=== PATIENT | male | born 1965 | race Caucasian/White ===

== ENCOUNTER 2024-08-13 06:16 | Inpatient (IN) | payer BC ==
[2024-08-13] MEDS ORDERED: ONDANSETRON 4 MG/2 ML VIAL ONE ×2 (06:38→09:44)
[2024-08-13] MEDS ORDERED: KETOROLAC 30 MG/ML INJ ONE ×2 (06:39→09:44)
[2024-08-13] MEDS ORDERED: NA CHLORIDE 0.9% 1,000 ML ONE ×2 (06:39→07:26)
[2024-08-13] MEDS ORDERED: MORPHINE 4 MG/ML SYR ONE (06:39)
[2024-08-13] MEDS ORDERED: METRONIDAZOLE 500mg IVPB 500 MG/100 ML BAG IV ONE (06:40)
[2024-08-13 06:49] LABS: Absolute Basophils 0.1 K/uL (0-0.5); Absolute Lymphocytes (CBC) 1.3 K/uL (0.7-4.9); Absolute Neutrophil 11.4 K/uL (1.8-8.0); Basophils % 0.5 % (0-1.3); Eosinophils % 0.2 % (0-4.4); Hemoglobin 15.9 g/dL (13.6-17.9); Lymphocytes % 9.3 % (15.3-44.8); MCHC 34.7 g/dL (32.0-36.0); MCV 89.4 fL (80-100); MPV 8.8 fL (7.6-11.3); Monocytes % 7.4 % (3.3-12.3); Neutrophils % 82.6 % (41.7-73.7); Nucleated Red Blood Cells % 0.1 % (0-0); Platelets 225 thou/uL (152-406); RBC Red Blood Cell Count 5.14 M/uL (4.33-5.43); Red Cell Distribution Width 13.1 % (12.1-15.2)
[2024-08-13 07:05] LABS: PT Prothrombin Time 12.5 SECONDS (9.4-12.5); PTT, Activated Partial Thromb 31.6 SECONDS (24.3-36.9); Protime INR 1.19
[2024-08-13 07:07] LABS: ALT/SGPT 69 U/L (16-61); AST/SGOT 21 U/L (15-37); Albumin 3.7 g/dL (3.4-5.0); Albumin/Globulin Ratio 0.9 (1.1-1.8); Alkaline Phosphatase 70 U/L (45-117); Anion Gap 8.8 mEq/L (5.0-15.0); BUN Blood Urea Nitrogen 8 mg/dL (7-18); Bicarbonate 25 mEq/L (21-32); Bilirubin Total 1.4 mg/dL (0.2-1.0); Globulin 4.2 g/dL (2.3-3.5); Glomerular Filtration Rate 83 ml/min (=/>90); Glucose Level 159 mg/dL (74-106); Lipase 17 U/L (13-75); Potassium 3.8 mEq/L (3.5-5.1); Protein, Total 7.9 g/dL (6.4-8.2); Sodium Level 135 mEq/L (136-145)
[2024-08-13 07:10] LABS: Troponin High Sensitivity < 3.0 pg/mL (<58.9)
[2024-08-13] MEDS ORDERED: CEFEPIME 2 GM VIAL ONE (07:25)
--- NOTE | 2024-08-13 08:19 | RAD REPORT ---
EXAM: CT CHEST, ABDOMEN AND PELVIS WITH CONTRAST CLINICAL INDICATION: Male, 58 years old. ABDOMINAL DISTENTION TECHNIQUE: CT chest, abdomen, and pelvis was performed, following the administration of contrast, as per department protocol. Axial, sagittal and coronal reconstructions were obtained. One or more of the following dose reduction techniques were used: Automated exposure control, adjustment of the mA a nd/or kV according to patient size, and/or iterative reconstruction. Unless otherwise specified, incidental findings do not require dedicated imaging follow-up. COMPARISON: No prior exam. FINDINGS: LUNGS AND AIRWAYS: No evidence of airspace or interstitial process. Solid 1.4 cm posterior right uppe r lobe lobulated nodule with linear atelectatic extension to the pleura. Subsegmental atelectatic changes in the right lower lobe dependent aspects and upper segment, and anterior aspects of the left lower lobe. PLEURA: No pleural effusion. No pneumothorax. MEDIASTINUM AND LYMPH NODES: No mediastinal mass or fluid collection. Normal size mediastinal, hilar, and axillary lymph nodes. THORACIC AORTA: Normal caliber and configuration. PULMONARY ARTERIES: Normal caliber. OSSEOUS STRUCTURES AND CHEST WALL: Intact. LIVER: The liver demonstrates mild fatty infiltration. 1.2 cm near fluid density hypoattenuating lesi on in the right lobe, indeterminate but may suggest a small simple cyst. No suspicious focal lesion or biliary dilitation is seen. BILIARY SYSTEM: Large cholesterol containing gallstones. No evidence of intrahepatic or extrahepatic biliary duct dilation PANCREAS: No mass, ductal dilation, or harshil-pancreatic fluid. SPLEEN: Normal size. No focal lesion. ADRENALS: Normal; no mass. KIDNEYS AND URETERS: Normal size and contour. No hydronephrosis. URINARY BLADDER: Normal contour. GASTROINTESTINAL TRACT: Inflammatory changes with ligament prominence and adjacent fat stranding at t he base to mid aspect of the appendix. 1.5 cm appendicolith near the base. No periappendiceal collections are extraluminal gas. No bowel obstruction, free air, significant free fluid or abscess. APPENDIX: No inflammatory changes in region of appendix. LYMPH NODES: No lymphadenopathy. ABDOMINAL AORTA AND OTHER VESSELS: Normal caliber aorta and IVC. MUSCULOSKELETAL: No acute or suspicious osseous abnormality. IMPRESSION: Findings of acute uncomplicated appendicitis, with inflammation more pronounced at the base. 1.5 cm a ppendicolith near the base. No evidence of complications. Large cholesterol containing gallstones and other incidental findings as above. Right upper lobe 1.4 cm nodule. 2017 Fleischner Society Recommendations for Lung Nodule(s): Follow-Up based on size (average of long- and short-axis diameters). Use most suspicious nodule for followup. Single solid lung nodule 9+ mm: Consider non-contrast chest CT at 3 months, PET/CT, or tissue samplin g. If this nodule was detected on an incomplete chest CT, first recommend a prompt, non-contrast chest CT. These guidelines do not apply to patients younger than 35 years, immunocompromised patients, and emerita ents with cancer. F/u in patients with significant comorbidities as clinically warranted. For lung cancer screening, adhere to Lung-RADS guidelines. Reference: Radiology. 2017 Hai; 284(1):228-243 THIS REPORT CONTAINS FINDINGS THAT MAY BE CRITICAL TO PATIENT CARE. The findings were verbally commun icated via telephone to Kyle Denis MD on 08/13/2024 8:13 AM.
--- NOTE | 2024-08-13 08:52 | ER ---
Nurse's Notes [facility] [place] Name: Jonatan Berg Age: 58 yrs Sex: Male : 1965 Arrival Date: 08/13/2024 Time: 06:16 Bed 8 Private MD: Diagnosis: Unspecified acute appendicitis Presentation: 08/13 06:28 Chief complaint: Patient states: right upper quadrant pain since 1 pm yesterday kl positive nausea chills fever. Coronavirus screen: Vaccine status: Patient reports receiving the 2nd dose of the covid vaccine. Ebola Screen: Patient negative for fever greater than or equal to 101.5 degrees Fahrenheit, and additional compatible Ebola Virus Disease symptoms. Initial Sepsis Screen: Does the patient meet any 2 criteria? Temp <36.0*C (96.8*F)) or > 38.3*C (100.9*F). HR > 90 bpm. Does the patient have a suspected source of infection? No. Patient's initial sepsis screen is negative. Risk Assessment: Do you want to hurt yourself or someone else? Patient reports no desire to harm self or others. Onset of symptoms was August 12, 2024 at 13:00. 06:28 Method Of Arrival: Wheelchair kl 06:28 Acuity: JACKSON 3 kl Triage Assessment: 06:30 General: Appears uncomfortable, well groomed, well developed, Behavior is cooperative, kl anxious. Pain: Complains of pain in right upper quadrant Pain currently is 9 out of 10 on a pain scale. Quality of pain is described as piercing, Noted to be grimacing, guarding, resistant to movement. GI: Reports upper abdominal pain, nausea, normal bowel habits. Derm: Skin is diaphoretic, Skin is normal. Historical: - Allergies: 06:30 No Known Allergies; kl - PSHx: 06:30 facial reconstruction; kl - Immunization history:: Adult Immunizations up to date. - Infectious Disease History:: Denies. - Social history:: Smoking status: Patient denies any tobacco usage or history of. - Family history:: not pertinent. Screenin:47 [facility] ED Fall Risk Assessment (Adult) History of falling in the last 3 months, al5 including since admission No falls in past 3 months (0 pts) Confusion or Disorientation No (0 pts) Intoxicated or Sedated No (0 pts) Impaired Gait No (0 pts) Mobility Assist Device Used No (0 pt) Altered Elimination No (0 pt) Score/Fall Risk Level 0 - 2 = Low Risk Oriented to surroundings, Maintained a safe environment, Hourly rounding (assess needs \T\ fall precautionary measures) done. Abuse screen: Denies threats or abuse. Denies injuries from another. Nutritional screening: No deficits noted. Tuberculosis screening: No symptoms or risk factors identified. Assessment: 06:48 General: Appears in no apparent distress. uncomfortable, Behavior is calm, cooperative. al5 Pain: Complains of pain in right lower quadrant Pain currently is 9 out of 10 on a pain scale. Neuro: Level of Consciousness is awake, alert, obeys commands, Oriented to person, place, time, situation. Cardiovascular: Capillary refill < 3 seconds Patient's skin is warm and dry. Respiratory: Airway is patent Respiratory effort is even, unlabored, Respiratory pattern is regular, symmetrical. GI: Abdomen is flat, non-distended, Abd is soft X 4 quads Abdomen is tender to palpation in right lower quadrant Reports upper abdominal pain, constipation, nausea. GI: Bowel sounds present X 4 quads. : No signs and/or symptoms were reported regarding the genitourinary system. EENT: No signs and/or symptoms were reported regarding the EENT system. Derm: Skin is intact, is healthy with good turgor, Skin is pink, warm \T\ dry. normal. Musculoskeletal: No signs and/or symptoms reported regarding the musculoskeletal system. 08:45 Reassessment: PER MD, PT +APPY. bp 09:49 Reassessment: Pt taken to OR. ph Vital Signs: 06:28 BP 142 / 100; Pulse 107; Resp 20; Temp 100.1(O); Pulse Ox 100% on R/A; Weight 122.47 kl kg; Height 6 ft. 4 in. ; Pain 9/10; 08:45 BP 124 / 77; Pulse 122; Resp 20; Pulse Ox 98% ; bp 09:46 BP 138 / 84; Pulse 129; Resp 27; Pulse Ox 92% ; bp 06:28 Body Mass Index 32.87 (122.47 kg, 193.04 cm) kl 06:28 Pain Scale: Adult kl [place] Coma Score: 06:40 Eye Response: spontaneous(4). Motor Response: obeys commands(6). Verbal Response: sp4 oriented(5). Total: 15. ED Course: 06:17 Patient arrived in ED. jj6 06:28 Josh Lew MD is Attending Physician. sp4 06:30 Triage completed. kl 06:33 First set of blood cultures drawn by ED staff. vk 06:46 Yokasta Medel RN is Primary Nurse. al5 06:46 Arm band placed on right wrist. Patient placed in the treatment room, on a stretcher, al5 on equipment monitor phototypesetting, on pulse oximetry. 06:47 No provider procedures requiring assistance completed. Inserted saline lock: 20 gauge al5 in right antecubital area, using aseptic technique. Blood collected. Flushed with 10 mL NS. 06:47 Patient has correct armband on for positive identification. Bed in low position. Call al5 light in reach. Side rails up X2. Provided Education on: plan of care. 07:20 Primary Nurse role handed off by Yokasta Medel RN bd 07:23 CT Chest, Abdomen, Pelvis - W/Contrast In Process Unspecified. EDMS 07:26 Attending Physician role handed off by Josh Lew MD rt 07:26 Kyle Denis MD is Attending Physician. rt 07:30 Marcus Tamayo, TYSHAWN is Primary Nurse. bp 08:51 Romero Singh MD is Hospitalizing Provider. rt 09:47 Patient admitted, IV remains in place. bp Administered Medications: 06:34 Not Given (Physician Discretion): [id number] mg PO once sp4 06:35 Not Given (Physician Discretion): [id number] mg PO once sp4 06:55 Drug: NS 0.9% IV (30 ml/kg) 30 ml/kg IV at bolus once; Sepsis Protocol; to be given as al5 a bolus over 90 minutes Route: IV; Rate: bolus; Site: right antecubital; 09:48 Follow up: IV Status: Completed infusion bp 06:55 Drug: morphine IVP or IV 8 mg IVP once over 4 mins Route: IVP; Infused Over: 4 mins; al5 Site: right antecubital; 09:30 Follow up: Response: No adverse reaction bp 06:55 Drug: Ketorolac IVP 30 mg IVP once Route: IVP; Site: right antecubital; al5 09:30 Follow up: Response: No adverse reaction bp 06:56 Drug: metroNIDAZOLE IVPB 500 mg 100 ml IVPB at 200 ml/hr once over 30 mins Volume: 100 al5 ml; Route: IVPB; Rate: 200 ml/hr; Infused Over: 30 mins; Site: right antecubital; 09:48 Follow up: IV Status: Completed infusion bp 06:56 Drug: Ondansetron IVP 8 mg IVP once; over 2 minutes Route: IVP; Site: right antecubital;al5 09:30 Follow up: Response: No adverse reaction bp 07:31 Drug: Cefepime IVPB 2 grams IVPB at 200 ml/hr once over 30 mins; (mix in NS 100 mL) bp Route: IVPB; Rate: 200 ml/hr; Infused Over: 30 mins; Site: right antecubital; 09:48 Follow up: IV Status: Completed infusion bp 09:48 Not Given (PT ADMITTEDd): ns 0.9% 1000 ml IV at 1 bolus Per protocol; to be given as a bp bolus over 60 minutes Medication: 06:47 VIS not applicable for this client. al5 Outcome: 08:51 Decision to Hospitalize by Provider. rt 09:47 Admitted to OR accompanied by nurse, family with patient, via wheelchair, Report called bp to BERNARDA VILLAGRAN 09:47 Condition: stable 09:49 Patient left the ED. ph Signatures: Dispatcher [employer] EDMS Pyeton Avalos Kimberly, RN Seema Salguero RN RN ph Peltier, Brian, RN RN bp Jeffries, Jennifer jj6 [place], Ryan, MD MD rt Josh Lew MD MD sp4 Amy Vera Amanda, RN RN al5
--- NOTE | 2024-08-13 08:52 | EDPHYS ---
Physician Documentation [facility] Name: Jonatan Berg Age: 58 yrs Sex: Male : 1965 Arrival Date: 08/13/2024 Time: 06:16 Bed 8 Private MD: ED Physician Kyle Denis HPI: 08/13 06:28 This 58 yrs old Male presents to ER via Unassigned with complaints of sp4 Abdominal Pain, Fever, Nausea, Constipation. 06:40 58-year-old male presents with acute moderate to severe right lower quadrant abdominal sp4 pain associated with fever. Pain rapidly developed over the past 24 hours. Historical: - Allergies: 06:30 No Known Allergies; kl - PSHx: 06:30 facial reconstruction; kl - Immunization history:: Adult Immunizations up to date. - Infectious Disease History:: Denies. - Social history:: Smoking status: Patient denies any tobacco usage or history of. - Family history:: not pertinent. ROS: 06:40 Constitutional: Negative for chills, and weight loss, positive right lower quadrant sp4 abdominal pain and fever 06:40 All other systems are negative, Exam: 06:40 Constitutional: This is a well developed, well nourished patient who is awake, alert, sp4 and in no acute distress. Head/Face: Normocephalic, atraumatic. Eyes: Pupils equal round and reactive to light, extra-ocular motions intact. Lids and lashes normal. Conjunctiva and sclera are not injected. Cornea within normal limits. Periorbital areas with no swelling, redness, or edema. ENT: Nares patent. No nasal discharge, no septal abnormalities noted. Tympanic membranes are normal and external auditory canals are clear. Oropharynx with no redness, swelling, or masses, exudates, or evidence of obstruction, uvula midline. Mucous membranes moist. Neck: Trachea midline, no thyromegaly or masses palpated, and no cervical lymphadenopathy. Supple, full range of motion without nuchal rigidity, or vertebral point tenderness. Chest/axilla: Normal chest wall appearance and motion. Nontender with no deformity. No lesions are appreciated. Cardiovascular: Regular rate and rhythm with a normal S1 and S2. No gallops, murmurs, or rubs. Normal PMI, no JVD. No pulse deficits. Respiratory: Lungs have equal breath sounds bilaterally, clear to auscultation and percussion. No rales, rhonchi or wheezes noted. No increased work of breathing, no retractions or nasal flaring. Abdomen/GI: Soft, with normal bowel sounds. No distension or tympany. Guarding, positive for right and epigastric tenderness, positive right lower abdominal tenderness with rebound Back: No spinal tenderness. No costovertebral tenderness. Skin: Warm, dry with normal turgor. Normal color with no rashes, no lesions, and no evidence of cellulitis. MS/ Extremity: Pulses equal, no cyanosis. Neurovascular intact. Full, normal range of motion. Neuro: Awake and alert, GCS 15, oriented to person, place, time, and situation. Cranial nerves II-XII grossly intact. Motor strength 5/5 in all extremities. Sensory grossly intact. Psych: Awake, alert, with orientation to person, place and time. Behavior, mood, and affect are within normal limits 07:28 ECG was reviewed by the Attending Physician. EKG at 0 647 sinus tachycardia rate sp4 104 otherwise normal Vital Signs: 06:28 BP 142 / 100; Pulse 107; Resp 20; Temp 100.1(O); Pulse Ox 100% on R/A; Weight 122.47 kl kg; Height 6 ft. 4 in. ; Pain 9/10; 08:45 BP 124 / 77; Pulse 122; Resp 20; Pulse Ox 98% ; bp 09:46 BP 138 / 84; Pulse 129; Resp 27; Pulse Ox 92% ; bp 06:28 Body Mass Index 32.87 (122.47 kg, 193.04 cm) 06:28 Pain Scale: Adult kl [place] Coma Score: 06:40 Eye Response: spontaneous(4). Motor Response: obeys commands(6). Verbal Response: sp4 oriented(5). Total: 15. MDM: 06:36 Medical Screening Exam initiated sp4 06:46 Differential diagnosis: viral Infection, bacterial infection, bronchitis, pneumonia sp4 UTI, gastroenteritis. Data reviewed: vital signs, nurses notes, lab test result(s), radiologic studies, CT scan. Consideration of Admission/Observation Escalation of care including admission/observation considered. Transition of care: After a detail discussion of the patient's case, care is transferred to Kyle Denis MD. 10:15 Management of patient was discussed with the following: Corporate Sales Trainer: Discussed with rt general surgery who will take the patient to the operating room today. I considered the following discharge prescriptions or medication management in the emergency department Medications were administered in the Emergency Department. See MAR. Independent interpretation of the following test(s) in the Emergency Department CT Scan: My interpretation is Acute appendicitis seen on interpretation of CT scan images. Counseling: I had a detailed discussion with the patient and/or guardian regarding the historical points, exam findings, and any diagnostic results supporting the discharge/admit diagnosis, lab results, radiology results, the need for further work-up and treatment in the hospital. Response to treatment: the patient's symptoms have markedly improved after treatment. 08/13 06:29 Order name: Blood Culture Adult (2) 08/13 06:29 Order name: CBC with Diff; Complete Time: 07:26 sp4 08/13 06:29 Order name: CMP; Complete Time: 07:26 08/13 06:29 Order name: Lactate w/ 2H reflex if indic.; Complete Time: 07:26 sp4 08/13 06:29 Order name: Protime (+inr); Complete Time: 07:26 sp08/13 06:29 Order name: Ptt, Activated; Complete Time: 07:26 sp4 08/13 06:29 Order name: Urinalysis w/ reflexes sp4 08/13 06:29 Order name: Troponin High Sensitivity; Complete Time: 07:26 sp4 08/13 06:29 Order name: Lipase; Complete Time: 07:26 sp4 08/13 06:29 Order name: CT Chest, Abdomen, Pelvis - W/Contrast; Complete Time: 08:32 sp08/13 06:29 Order name: Cardiac monitoring; Complete Time: 06:31 sp4 08/13 06:29 Order name: EKG - Nurse/Tech; Complete Time: 06:50 sp4 08/13 06:29 Order name: IV Saline Lock - Large Bore; Complete Time: 06:38 sp08/13 06:29 Order name: Labs collected and sent; Complete Time: 06:38 08/13 06:29 Order name: O2 Per Protocol; Complete Time: 06:31 sp4 08/13 06:29 Order name: O2 Sat Monitoring; Complete Time: 06:31 sp08/13 06:29 Order name: Vital Signs; Complete Time: 06:38 sp4 0204 09:29 Order name: EKG - Nurse/Tech; Complete Time: 09:46 rt EC:47 Rate is 104 beats/min. Rhythm is regular, Sinus tachycardia. QRS [place] is Normal. SD sp4 interval is normal. QRS interval is normal. QT interval is normal. No Q waves. T waves are Normal. No ST changes noted. Clinical impression: No evidence of ischemia. Interpreted by me. Reviewed by me. Administered Medications: 06:34 Not Given (Physician Discretion): [id number] mg PO once sp4 06:35 Not Given (Physician Discretion): [id number] mg PO once sp4 06:55 Drug: NS 0.9% IV (30 ml/kg) 30 ml/kg IV at bolus once; Sepsis Protocol; to be given as al5 a bolus over 90 minutes Route: IV; Rate: bolus; Site: right antecubital; 09:48 Follow up: IV Status: Completed infusion bp 06:55 Drug: morphine IVP or IV 8 mg IVP once over 4 mins Route: IVP; Infused Over: 4 mins; al5 Site: right antecubital; 09:30 Follow up: Response: No adverse reaction bp 06:55 Drug: Ketorolac IVP 30 mg IVP once Route: IVP; Site: right antecubital; al5 09:30 Follow up: Response: No adverse reaction bp 06:56 Drug: metroNIDAZOLE IVPB 500 mg 100 ml IVPB at 200 ml/hr once over 30 mins Volume: 100 al5 ml; Route: IVPB; Rate: 200 ml/hr; Infused Over: 30 mins; Site: right antecubital; 09:48 Follow up: IV Status: Completed infusion bp 06:56 Drug: Ondansetron IVP 8 mg IVP once; over 2 minutes Route: IVP; Site: right antecubital;al5 09:30 Follow up: Response: No adverse reaction bp 07:31 Drug: Cefepime IVPB 2 grams IVPB at 200 ml/hr once over 30 mins; (mix in NS 100 mL) bp Route: IVPB; Rate: 200 ml/hr; Infused Over: 30 mins; Site: right antecubital; 09:48 Follow up: IV Status: Completed infusion bp 09:48 Not Given (PT ADMITTEDd): ns 0.9% 1000 ml IV at 1 bolus Per protocol; to be given as a bp bolus over 60 minutes Disposition Summary: 08/13/24 08:51 Hospitalization Ordered Notes: Hospitalization Status: Observation rt Provider: Romero Singh rt Location: Operating Room rt Condition: Fair rt Problem: new rt Symptoms: have improved rt Bed/Room Type: Standard rt Room Assignment: rt Diagnosis - Unspecified acute appendicitis rt Forms: - Medication Reconciliation Form rt - SBAR form rt - Leadership Thank You Letter rt Signatures: Dispatcher [employer] EDSoledad Davis, Marcus Rinaldi RN, RN RN bp [place], Ryan, MD MD rt Josh Lew MD MD sp4 Yokasta Medel RN RN al5 Corrections: (The following items were deleted from the chart) 06:29 06:29 BLOOD CULTURE*+BA.LAB.BRZ ordered. EDMS EDMS 06:29 06:29 CBC+H.LAB.BRZ ordered. EDMS EDMS 06:29 06:29 COMPREHENSIVE METABOLIC PANEL+C.LAB.BRZ ordered. EDMS EDMS 06:29 06:29 LACTATE+C.LAB.BRZ ordered. EDMS EDMS 06:29 06:29 PROTIME (+INR)+COAG.LAB.BRZ ordered. EDMS EDMS 06:29 06:29 PTT, ACTIVATED+COAG.LAB.BRZ ordered. EDMS EDMS 06:29 06:29 Urinalysis+U.LAB.BRZ ordered. EDMS EDMS 06:30 06:30 Troponin High Sensitivity+C.LAB.BRZ ordered. EDMS EDMS 06:30 06:30 LIPASE+C.LAB.BRZ ordered. EDMS EDMS 06:30 06:30 Chest Abdomen Pelvis W Con+CT.RAD.BRZ ordered. EDMS EDMS 06:38 06:29 Accucheck ordered. sp4 kl
--- NOTE | 2024-08-13 09:34 | P.HP ---
Certification for Inpatient Patient admitted to: Observation With expected LOS: <2 Midnights Patient will require the following post-hospital care: None Practitioner: I am a practitioner with admitting privileges, knowledge of patient current condition, hospital course, and medical plan of care. Services: Services provided to patient in accordance with Admission requirements found in Title 42 Section 412.3 of the Code of Federal Regulations Patient History Date of Service: 08/13/24 Reason for admission: Abdominal pain History of Present Illness: Patient is a 58-year-old gentleman came to the hospital with abdominal pain. Pain was mainly the right lower quadrant. Patient came to the emergency room and workup revealed acute appendicitis. Patient was started on IV fluids and IV antibiotics. Patient's pain is better controlled. However patient remains tachycardic. Patient states he has seen PCP 5 years ago and had a completely normal checkup. He states his cholesterol has been normal and his blood pressure has been normal. He has not been to a primary care provider since that time. Currently, patient denies any chest pain or shortness of breath. Patient denies any lightheadedness. He is having some rigors from his fever. His heart rate most likely is being driven by his acute infectious process. At this time patient will be admitted for observation. Allergies No Known Allergies Allergy (Unverified 08/13/24 09:31) Home medications list reviewed: Yes Home Medications: NK [No Home Meds] 08/13/24 - Past Medical/Surgical History Past Medical History: Patient denies medical history Past Surgical History: Patient denies surgical history - Family History Father Family History: Reviewed- Non-Contributory - Social History Smoking Status: Never smoker Alcohol use: No CD- Drugs: No Review of Systems 10-point ROS is otherwise unremarkable Physical Examination - Vital Signs Temperature: 98 F Blood Pressure: 140/80 Pulse: 130 Respirations: 18 Pulse Ox (%): 95 - Physical Exam General: Alert, In no apparent distress, Oriented x3 HEENT: Atraumatic, PERRLA, Mucous membr. moist/pink, EOMI, Sclerae nonicteric Neck: Supple, 2+ carotid pulse no bruit, No LAD, Without JVD or thyroid abnormality Respiratory: Clear to auscultation bilaterally, Normal air movement Cardiovascular: Regular rate/rhythm, Normal S1 S2, Other (Tachycardic) Gastrointestinal: Normal bowel sounds, Soft and benign, Non-distended, Tenderness (Right lower quadrant) Musculoskeletal: No tenderness Integumentary: No rashes Neurological: Normal gait, Normal speech, Normal strength at 5/5 x4 extr, Normal tone, Sensation intact, Cranial nerves 3-12 intact, Normal affect Lymphatics: No axilla or inguinal lymphadenopathy - Studies Laboratory Data (last 24 hrs) 08/13/24 08/13/24 08/13/24 06:33 06:33 06:33 WBC 13.80 H Hgb 15.9 Hct 46.0 Plt Count 225 PT 12.5 INR 1.19 APTT 31.6 Sodium 135 L Potassium 3.8 BUN 8 Creatinine 1.04 Glucose 159 H Total Bilirubin 1.4 H AST 21 ALT 69 H Alkaline Phosphatase 70 Lipase 17 Assessment & Plan - Problems (Diagnosis) (1) Acute appendicitis Current Visit: Yes Status: Acute (2) Tachyarrhythmia Current Visit: Yes Status: Acute - Plan 1. Acute appendicitis; continue with IV fluids and IV antibiotics. Surgery consulted. N.p.o. for appendectomy 2. Tachyarrhythmia; most likely related to infectious process. Continue with aggressive IV hydration and after surgery will reassess. If still tachycardic we will check thyroid studies as well as echocardiogram. At this time patient will be admitted for observation. Discharge Plan: Home Plan to discharge in: 24 Hours - Advance Directives Does patient have a Living Will: No Does patient have a Durable POA for Healthcare: No - Code Status/Comfort Care Code Status Assessed: Yes Code Status: Full Code Critical Care: No Time Spent Managing PTS Care (In Minutes): 45
[2024-08-13] MEDS ORDERED: propofoL 200 MG/20 ML VIAL IV ONE (09:44)
[2024-08-13] MEDS ORDERED: MIDAZOLAM HCL 2 MG/2 ML INJ ONE (09:44)
[2024-08-13] MEDS ORDERED: ROCURONIUM 50 MG/5 ML VIAL IV ONE (09:44)
[2024-08-13] MEDS ORDERED: FENTANYL CITR 100 MCG/2 ML ONE (09:44)
[2024-08-13] MEDS ORDERED: dexAMETHasone 10 MG/ML VIAL ONE (09:44)
[2024-08-13] MEDS ORDERED: LIDOCAINE 2% MPF 5 ML VIAL ONE (09:44)
[2024-08-13] MEDS: NA CHLORIDE 0.9% 1,000 ML IV SCH ×2 (10:00→12:14)
[2024-08-13] MEDS: Ringers Lactate 1,000 ML IV ONE ×2 (10:03→11:00)
[2024-08-13] MEDS ORDERED: ALPRAZOLAM 0.25 MG TABLET PO PRN (10:04)
[2024-08-13] MEDS: BUPIVACAINE 0.5% PF 10 ML VIAL ONE (10:04)
[2024-08-13] MEDS ORDERED: ACETAMINOPHEN 500 MG TAB PO PRN (10:04)
[2024-08-13] MEDS ORDERED: ONDANSETRON 4 MG (ODT) TAB PO PRN (10:04)
[2024-08-13] MEDS: SUCCINYLCHOLINE 20 MG/ML (10 ML) IV ONE (10:21)
--- NOTE | 2024-08-13 10:25 | P.CNS ---
Date of Consult: 08/13/24 Reason for consult: Abdominal pain History of present illness: Patient is a 58-year-old gentleman presents to the emergency room with approximately 18-hour history of right lower quadrant abdominal pain associated with nausea but no vomiting. Patient does have fever and chills. Patient denies diarrhea, constipation, no blood in his stools, no dysuria or hematuria. Patient denies any sore throat, runny nose, cough, headaches, dizziness or chest pain. Review of systems: Otherwise unremarkable Past medical history: Negative Past surgical history: Negative Allergies: No allergies Social history: Patient does not smoke or drink alcohol Family history: Noncontributory Vital signs: Tachycardic, temperature is 100.1 Physical exam: Awake, alert and oriented x 3 Head and neck exam: No neck masses, no JVD, throat clear neck supple Chest: Clear Heart: S1-S2 Abdomen: Soft, nondistended, positive bowel sounds, right lower quadrant tenderness with rebound and rigidity Extremity: Neurovascular intact Neuro: Nonfocal Diagnostic data: CT reviewedpatient has a nodule in his lung which according to the patient is stable from previous x-rays. It is a sequelae of pneumonia long time ago. Patient has gallstones but no evidence of cholecystitis. Patient has findings consistent with acute appendicitis and an appendicolith. Patient has leukocytosis. Patient's lactic acid is 1.6. Assessment: Acute appendicitis, cholelithiasis and lung mass. Patient also has significant tachycardia probably secondary to infection. Plan/recommendation: Admit, n.p.o., IV fluids, IV antibiotics and to the OR for laparoscopic appendectomy possible open. Patient understands risk, benefits and alternatives and agrees to procedure. CC:
[2024-08-13] MEDS ORDERED: NS 0.9% VIAL 10 ML ONE (10:51)
[2024-08-13] MEDS ORDERED: VECURONIUM 10 MG/VIAL IV ONE (10:51)
[2024-08-13] MEDS ORDERED: ESMOLOL HCL 10 ML IV ONE ×2 (10:54→11:25)
[2024-08-13] MEDS: SUGAMMADEX SODIUM 200 MG/2 ML VIAL IV ONE (11:28)
[2024-08-13] MEDS ORDERED: ONDANSETRON 4 MG/2 ML VIAL IV PRN (11:45)
[2024-08-13] MEDS ORDERED: MORPHINE 4 MG/ML SYR IV PRN (11:45)
--- NOTE | 2024-08-13 11:56 | P.OP ---
Date of Service: 08/13/24 Preop diagnosis: Acute appendicitis Postop diagnosis: Acute suppurative appendicitis with perforation Procedure performed: Laparoscopic appendectomy Surgeon: Romero Singh MD Packaging Associate: Jocelyn MAR Estimated blood loss: Minimal Specimen: Culture and sensitivity of the pus around the appendix Findings: As above Anesthesia: General Complications: None Drains: Ted-Henderson drain #10 flat Fluids and blood products: Nonapplicable Disposition: Recovery room Operative note: Patient brought to the OR and placed in supine position. General anesthesia began. Patient prepped and draped in usual sterile fashion. Marcaine 0.5% infiltrated locally for postop pain control. 15 blade used to make a 1 cm supraumbilical midline incision. Subcutaneous tissue divided and bleeding controlled with cautery. Fascia identified and divided. #1 Vicryl stay suture placed. Peritoneal cavity entered with sharp and blunt dissection. 12 mm trocar placed into the peritoneal cavity under direct vision. Pneumoperitoneum established. Two 5 mm trocars initially placed. 1 trocar placed in the suprapubic region under direct vision. The other trocar placed in the left lower quadrant under direct vision. Laparoscopy revealed purulent material throughout the right lower quadrant and pelvis which was aspirated. Irrigation was utilized to remove all of the purulence that was seen. There was fibrinous exudate present on the small bowel in the right lower quadrant. The appendix was retrocecal. We needed an extra 5 mm port to access the retrocecal appendix. The extra port was placed in the right lower quadrant. A retractor was utilized. And then the appendix was identified. The appendix was acutely inflamed with suppuration and questionable perforation in the middle of the appendix. The base of the appendix was healthy near the cecum. Endo MILDRED stapling device used to divide the base of the appendix on the cecum. LigaSure used to it divide the mesoappendix. The appendix was removed and cultures were done via Endo Catch bag. Right lower quadrant and pelvis were thoroughly irrigated. Effluent was clear and there was no evidence of bleeding noted. Ted-Henderson drain #10 flat was placed in the right lower quadrant and pelvis. The drain was secured with 3-0 nylon. All trocars were removed under direct vision. Stay sutures were tied to each other to reapproximate the fascial defect. Subcutaneous wounds irrigated and bleeding controlled cautery. 3-0 chromic used to approximate subcutaneous tissue and jayesh used to close skin. Sterile dressing applied. Patient awakened and taken to recovery room in good general condition. CC:
[2024-08-13] MEDS ORDERED: HYDROMORPHONE HCL 1 MG/ML INJ IV PRN (12:14)
[2024-08-13] MEDS ORDERED: HYDROCODONE/APAP 7.5/325 MG TAB PO PRN (12:14)
[2024-08-13] MEDS: HYDROCODONE/APAP 5/325 MG TAB ONE (12:32)
[2024-08-13] MEDS: Ringers Lactate 500 ML IV ONE (12:39)
[2024-08-13 12:57] VITALS: O2SAT 94
[2024-08-13] MEDS: NA CHLORIDE 0.9% 1,000 ML ONE (13:23)
[2024-08-13 15:51] VITALS: BMI 32.8
[2024-08-13] MEDS: PIPER TAZO 3.375 GM in NA CHLORIDE 0.9% 100 ML IV SCH (18:23)
[2024-08-14] MEDS: Ringers Lactate 1,000 ML IV SCH (03:56)
[2024-08-14 07:09] LABS: Absolute Monocytes 0.7 K/uL (0.1-1.3); Absolute Neutrophil 12.1 K/uL (1.8-8.0); Hematocrit 36.9 % (39.6-49.0); MCH 31.6 pg (27.0-35.0); MCHC 35.3 g/dL (32.0-36.0); MCV 89.7 fL (80-100); MPV 9.4 fL (7.6-11.3); Monocytes % 4.8 % (3.3-12.3); Neutrophils % 88.2 % (41.7-73.7); Platelets 163 thou/uL (152-406); RBC Red Blood Cell Count 4.12 M/uL (4.33-5.43); Red Cell Distribution Width 13.4 % (12.1-15.2)
[2024-08-14 07:23] LABS: Anion Gap 5.7 mEq/L (5.0-15.0); Potassium 3.7 mEq/L (3.5-5.1)
[2024-08-14 07:34] LABS: Phosphorus 1.4 mg/dL (2.5-4.9)
[2024-08-14] MEDS: POTASS/SODIUM PHOSPHATE 1 PKT POWD.PACK PO SCH (09:24)
[2024-08-14 09:54] LABS: Band Neutrophils 14 % (0-1); Differential Total Cells Count 100; Lymphocytes 6 % (15-42); Monocytes 5 % (0-10); Segmented Neutrophils 75 % (40-80)
[2024-08-14 09:55] LABS: Blood Morphology Comment NOT SEEN (NOT SEEN); Platelet Estimate ADEQ
--- NOTE | 2024-08-14 11:32 | EKG ---
Test Date: 2024-08-13 Test Time: 06:47:35 Medical Dir: JOEY MEASUREMENT RESULTS: Intervals: Rate: 104 SD: 148 QRSD: 82 QT: 340 QTc: 447 [place]: P: 52 SD: 148 QRS: 41 T: 38 INTERPRETIVE STATEMENTS: Sinus tachycardia Otherwise normal ECG No previous ECG available for comparison Electronically Signed On 08-14-24 11:29:49 COLLECTIONS DIRECTOR by Abdirashid Quan
--- NOTE | 2024-08-14 15:29 | PN ---
Date of Progress Note: 08/14/2024 Subjective: Patient is awake, alert. No complaint. Vital signs stable. He is afebrile. His labor atory data shows white count 13.7. His abdomen is benign, may be slightly distended, but nontender a nd he does have bowel sounds. Assessment: Status post laparoscopic appendectomy for perforated appendicitis. Recommendations: Continue IV antibiotics. Encourage ambulation and incentive spirometry. The patie nt will need to be discharged on oral antibiotics after his leukocytosis improves and he is able to t olerate diet and afebrile. Hopefully discharge in a day or 2. /MODL Voice ID: [id number] Report ID: [id number]
[2024-08-14] MEDS: TAMSULOSIN 0.4 MG SR CAP PO ONE (16:31)
[2024-08-14] MEDS: TAMSULOSIN 0.4 MG SR CAP PO SCH (20:47)
[2024-08-15 05:35] VITALS: TEMP 98.2
[2024-08-15 07:23] LABS: Absolute Eosinophils 0.1 K/uL (0-0.5); Absolute Lymphocytes (CBC) 1.4 K/uL (0.7-4.9); Absolute Monocytes 0.4 K/uL (0.1-1.3); Absolute Neutrophil 5.4 K/uL (1.8-8.0); Basophils % 0.6 % (0-1.3); Eosinophils % 1.7 % (0-4.4); Hematocrit 38.9 % (39.6-49.0); Hemoglobin 13.2 g/dL (13.6-17.9); Lymphocytes % 19.4 % (15.3-44.8); MCH 31.1 pg (27.0-35.0); MCHC 33.8 g/dL (32.0-36.0); MCV 91.8 fL (80-100); MPV 8.8 fL (7.6-11.3); Neutrophils % 72.3 % (41.7-73.7); Platelets 190 thou/uL (152-406); RBC Red Blood Cell Count 4.24 M/uL (4.33-5.43); Red Cell Distribution Width 13.2 % (12.1-15.2)
[2024-08-15 07:25] LABS: Anion Gap 4.6 mEq/L (5.0-15.0); Magnesium 2.2 mg/dL (1.6-2.4); Potassium 3.6 mEq/L (3.5-5.1)
--- NOTE | 2024-08-15 11:40 | PN ---
Date of Progress Note: 08/15/2024 Subjective: The patient is awake, alert. No complaint. Tolerating diet. Objective: Vital Signs: Stable, afebrile. Abdomen: Benign. Laboratory Data: Pathology report reviewed. The patient had acute appendicitis with likely perforat ion. White count is normal with no left shift. Assessment: Status post laparoscopic appendectomy. Recommendation: The patient cleared from surgical standpoint for discharge. Discharge instructions given in detail. The patient will be on antibiotics. I will see him next week in my office. /MODL Voice ID: [id number] Report ID: [id number]
[2024-08-15 12:17] VITALS: BP 142/82
== END 2024-08-15 11:40 | disposition home or self-care (01) | DRG 399 ==
LOC: ER 06:16 → DS 09:14 → 4TH 12:27 → OBSVTOIN 08-15 08:46
PROVIDERS: ADMIT Hospitalist; ATTEND Hospitalist
PROC: 0DTJ4ZZ Resection of Appendix, Percutaneous Endoscopic Approach (ICD-10-PCS; principal; 2024-08-13 10:22)
DX: K35.32 Acute appendicitis with perforation, localized peritonitis, and gangrene, without abscess (principal); K59.00 Constipation, unspecified; K80.20 Calculus of gallbladder without cholecystitis without obstruction; R00.0 Tachycardia, unspecified; R91.8 Other nonspecific abnormal finding of lung field
CPT/HCPCS: 36415; 71260; 74177; 80048; 80053; 83605; 83690; 83735; 84100; 84484; 85025; 85610; 85730; 87040; 87070; 87075; 87077; 87186; 87205; 88304; 93005; 94010; 96365; 96367; 96375; 99285; A4216; A4314; G0378; J0692; J1100; J2003; J2250; J2405; J2543; J2704; J3010; J7030; J7120; Q9967